=== PATIENT | male | born 1965 | race Caucasian/White ===

== ENCOUNTER 2018-12-19 11:10 | Day surgery (SDC) | payer MEDICARE ==
[~2018-12-19 11:10] MED LIST: Midazolam 1 MG/ML 2 ML SDV ONE; Propofol 200 MG/20 ML SDV ONE
[2018-12-19] MEDS ORDERED: Lactated Ringers 1,000 ML IV SCH (11:45)
[2018-12-19] MEDS ORDERED: Sodium Chloride 0.9% 10 ML Syringe FLUSH PRN (11:45)
--- NOTE | 2018-12-19 11:59 | PCM.HPR ---
H & P Addendum review - H & P Addendum Review Date of Original H & P: 12/12/18 Date Reviewed: 12/19/18 Time Reviewed: 11:59 Patient was Examined: No Changes
[2018-12-19] MEDS ORDERED: Propofol 200 MG/20 ML SDV ONE (12:06)
[2018-12-19] MEDS ORDERED: Midazolam 1 MG/ML 2 ML SDV ONE (12:06)
--- NOTE | 2018-12-19 12:31 | PCM.OPNOTE ---
- General Post-Op/Procedure Note Date of Surgery/Procedure: 12/19/18 Operative Procedure(s): Colonoscopy Findings: Normal Pre Op Diagnosis: Screening Post-Op Diagnosis: Same Anesthesia Technique: NIRMALA Primary Surgeon: Regulo Polanco Anesthesia Provider: Jackie Mars Complications: None Condition: Good
[2018-12-19 16:17] VITALS: PULSE 72
[2018-12-19 16:18] VITALS: BP 117/77
--- NOTE | 2018-12-20 09:58 | OR ---
Date of Procedure: 12/19/2018 PREOPERATIVE DIAGNOSIS: Family history of colon polyps in father. POSTOPERATIVE DIAGNOSIS: Normal colonoscopy. PROCEDURE: Colonoscopy. ANESTHESIA: IV sedation. DESCRIPTION OF PROCEDURE: The patient was brought to the procedure room where he was placed on his left side and IV sedation administered. Digital rectal exam was performed which was normal. The colonoscope was inserted and advanced to the level of the cecum without difficulty. Cecal position was confirmed by identifying the appendiceal lumen and ileocecal valve. Prep was good and surfaces were well visualized. Upon withdrawing the scope, the ascending, transverse, and descending colon were normal in appearance. Sigmoid colon and rectum were normal. Retroflexion was normal. Air was removed and the scope withdrawn. The patient tolerated the procedure well and returned to Recovery in stable condition. RECOMMENDATIONS: Recommend colon screening again in 5 years. POOJA ELLIS MD /[id number]
== END 2018-12-19 13:45 | disposition home or self-care (01) ==
LOC: LL.SDS 11:10
PROVIDERS: ATTEND Surgery
DX: Z12.11 Encounter for screening for malignant neoplasm of colon (principal); F17.210 Nicotine dependence, cigarettes, uncomplicated; Z83.71 Family history of colonic polyps; Z79.899 Other long term (current) drug therapy; Z88.0 Allergy status to penicillin
CPT/HCPCS: 00812; G0121; J2250; J2704; J7120

== ENCOUNTER 2021-09-17 14:29 | Emergency (ER) | payer MEDICARE, OTHER ==
[2021-09-17 14:53] VITALS: BP 132/70
[2021-09-17] MEDS ORDERED: Lidocaine 1% 5 ML VIAL INJECT ONE (15:24)
[2021-09-17] MEDS ORDERED: Bacitracin/Neomycin/Polymyxin B Oint 0.9 GM U/D Packet TOP ONE (15:49)
[2021-09-17 16:36] VITALS: PULSE 80
== END 2021-09-17 16:35 | disposition home or self-care (01) ==
LOC: EDBD → MERGE 14:29 → LL.ED 14:29
DX: S61.217A Laceration without foreign body of left little finger without damage to nail, initial encounter (principal); W26.8XXA Contact with other sharp object(s), not elsewhere classified, initial encounter
CPT/HCPCS: 12001; 99282; 99283

== ENCOUNTER 2021-09-18 15:00 | Emergency (ER) | payer MEDICARE, OTHER ==
[2021-09-18] MEDS ORDERED: Bacitracin/Neomycin/Polymyxin B Oint 0.9 GM U/D Packet TOP ONE (15:47)
[2021-09-18 19:17] VITALS: BP 132/68; PULSE 82
== END 2021-09-18 16:30 | disposition home or self-care (01) ==
LOC: LL.ED 15:27 → SUPCPDRO 15:27 → LL.ED 16:30
DX: S61.213A Laceration without foreign body of left middle finger without damage to nail, initial encounter (principal); S61.215A Laceration without foreign body of left ring finger without damage to nail, initial encounter; S61.211A Laceration without foreign body of left index finger without damage to nail, initial encounter; Z88.0 Allergy status to penicillin; Z88.1 Allergy status to other antibiotic agents; Z79.899 Other long term (current) drug therapy; Z90.49 Acquired absence of other specified parts of digestive tract; W26.8XXA Contact with other sharp object(s), not elsewhere classified, initial encounter
CPT/HCPCS: 12002; 99282; 99283

== ENCOUNTER 2024-05-01 10:53 | Day surgery (SDC) | payer MEDICARE, OTHER ==
[~2024-05-01 10:53] MED LIST changes: +Sodium Chloride 0.9% 10 ML Syringe FLUSH PRN
[2024-05-01] MEDS: Lactated Ringers 1,000 ML IV SCH (11:43)
[2024-05-01 13:44] VITALS: BP 120/78; PULSE 78
== END 2024-05-01 13:12 | disposition home or self-care (01) ==
LOC: LL.SDS 10:53
PROVIDERS: ATTEND Surgery
DX: Z12.11 Encounter for screening for malignant neoplasm of colon (principal); D12.2 Benign neoplasm of ascending colon; K63.5 Polyp of colon; Z80.0 Family history of malignant neoplasm of digestive organs; E78.2 Mixed hyperlipidemia; Z79.899 Other long term (current) drug therapy
CPT/HCPCS: 00811; J2250; J2704; J7120

== ENCOUNTER 2024-05-19 14:30 | Emergency (ER) | payer MEDICARE ==
[2024-05-19] MEDS ORDERED: Naloxone 0.4 MG/ML SDV IVPUSH PRN (14:43)
[2024-05-19] MEDS: Ondansetron 4 MG/2 ML SDV IVPUSH PRN (14:59)
[2024-05-19] MEDS: fentaNYL 50 MCG/ML SDV IVPUSH ONE (14:59)
[2024-05-19] MEDS: Sodium Chloride 0.9% 10 ML Syringe FLUSH PRN (15:00)
[2024-05-19 15:03] LABS: BASOPHILS ABSOLUTE AUTO 0.04 K/uL (0.00-0.20); BASOPHILS PERCENT AUTO 0.4 % (0.0-2.0); EOSINOPHILS ABSOLUTE AUTO 0.28 K/uL (0.00-0.50); EOSINOPHILS PERCENT AUTO 2.7 % (0.0-5.0); HEMATOCRIT 43.3 % (39.0-49.0); HEMOGLOBIN 15.1 g/dL (13.1-16.8); IMMATURE GRAN ABSOLUTE AUTO 0.02 10^3/uL (0.00-0.04); IMMATURE GRAN PERCENT AUTO 0.2 % (0.0-0.4); LYMPHOCYTES ABSOLUTE AUTO 2.55 K/uL (0.50-3.50); LYMPHOCYTES PERCENT AUTO 24.9 % (10.0-50.0); MEAN CORPUSCULAR HGB CONC 34.9 g/dL (31.7-36.0); MEAN CORPUSCULAR VOLUME 94.7 fL (84.0-98.0); MONOCYTES ABSOLUTE AUTO 0.72 K/uL (0.00-1.00); NEUTROPHILS ABSOLUTE AUTO 6.63 K/uL (1.40-7.00); NEUTROPHILS PERCENT AUTO 64.8 % (45.0-80.0); PLATELET COUNT,PLT 238 K/uL (150-350); RED BLOOD CELL COUNT 4.57 M/uL (4.33-5.41); RED CELL DISTRIBUTION WIDTH 12.3 % (11.2-14.1); WHITE BLOOD CELL COUNT,WBC 10.2 K/uL (4.0-10.2)
[2024-05-19 15:23] LABS: INR 1.1 (0.9-1.1); PROTHROMBIN TIME 11.4 SEC (9.0-11.1)
[2024-05-19 15:27] LABS: ALBUMIN 4.2 g/dL (3.4-5.0); BILIRUBIN TOTAL 0.5 mg/dL (0.2-1.0); CALCIUM 9.6 mg/dL (8.5-10.1); CARBON DIOXIDE,CO2 25.3 mmol/L (21.0-32.0); CREATININE 1.14 mg/dL (0.51-1.17); EST CRCL DRUG DOSING (CG) 77.52 mL/min; ETHANOL BLOOD MEDICAL 0.006 g/dL (0.000-0.080); MAGNESIUM 1.7 mg/dL (1.8-2.4); POTASSIUM,K 3.3 mmol/L (3.5-5.1); PROTEIN TOTAL,TP 7.9 g/dL (6.4-8.2)
[2024-05-19 15:35] LABS: LACTIC ACID 1.3 mmol/L (0.4-2.0)
[2024-05-19] MEDS ORDERED: Potassium Chloride Riders 10 MEQ in Premix Bag 2 BAG IV SCH (15:45)
[2024-05-19] MEDS: Potassium Bicarbonate/Cit Ac 20 MEQ Effervescent Tab PO ONE (17:00)
[2024-05-19] MEDS: Iopamidol 612 MG/ML 100 ML Bottle IVPUSH STA (17:00)
[2024-05-19] MEDS: Sodium Chloride 0.9% 1,000 ML IV ONE (17:00)
[2024-05-19 17:09] VITALS: BP 130/78; PULSE 88
== END 2024-05-19 17:00 | disposition home or self-care (01) ==
LOC: LL.ED 14:30
DX: E87.6 Hypokalemia (principal); E78.00 Pure hypercholesterolemia, unspecified; Z88.0 Allergy status to penicillin; Z79.899 Other long term (current) drug therapy; Z90.49 Acquired absence of other specified parts of digestive tract
CPT/HCPCS: 36415; 74177; 76705; 80053; 80307; 83605; 83690; 83735; 85025; 85610; 96374; 96375; 99284; 99284-25; A9270-GY; J2405; J3010; Q9967